=== PATIENT | male | born 1965 | race Caucasian/White ===

== ENCOUNTER 2016-09-28 19:29 | Emergency (ER) | END 2016-09-29 00:21 | disposition home or self-care (01) | DX: S62.661A Nondisplaced fracture of distal phalanx of left index finger, initial encounter for closed fracture (principal); S60.122A Contusion of left index finger with damage to nail, initial encounter; J20.9 Acute bronchitis, unspecified; R42 Dizziness and giddiness; R05 Cough; W27.0XXA Contact with workbench tool, initial encounter; Y92.9 Unspecified place or not applicable | CPT/HCPCS: 71010; 73140; 93005; 94644; 94664; Z7502; Z7610 ==

== ENCOUNTER 2017-01-02 20:14 | Emergency (ER) | payer MEDICAID ==
[~2017-01-02] VITALS: Ht 167.6 cm; Wt 84.0 kg
[~2017-01-02 20:14] MED LIST: ALBU8.5H3 INH; CEPH-443 PO; CETI10CA PO; GUAI120S26 PO; HYDR-906 PO; IBUP400T22 PO
[2017-01-02 20:21] VITALS: Ht 167.6 cm; Wt 84.0 kg
[2017-01-02] MEDS ORDERED: FLUORESCEIN STRIP RIGHT EYE ONE (21:00)
[2017-01-02] MEDS ORDERED: TETRACAINE 0.5% 4 ML OPH RIGHT EYE ONE (21:00)
--- NOTE | 2017-01-02 21:40 | ERD ---
ER Documentation Chief Complaint Date/Time DATE: 01/02/17 TIME: 21:32 Chief Complaint right eye redness/poss fb since last night, also c/o rashes both arms HPI 50-year-old male presents with chief complaint of right eye redness and discomfort since yesterday. Patient states that symptoms began after he believes a lawnmower blew fragments of leaves into his eye, he then began to itch his eye and noticed bright redness in the left corner of his eye afterwards. He denies changes in vision, discharge, periorbital swelling, pain with moving eyes from side to side, and photophobia. He denies use of contact lenses and glasses. He denies any direct blunt trauma. In addition patient complains of bilateral arm rash 2 weeks, he is applied hydrocortisone and Benadryl without relief. 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 However does not wear gloves. He denies other close contacts having similar rash, denies use of any medications or topical agents. Denies shortness of breath, fever or wheezing. ROS All systems reviewed and are negative except as per history of present illness. Medications Home Meds Active Scripts Triamcinolone Acetonide (Triamcinolone Acetonide) 0.1% - 15 Gm Cream.gm., 1 APPLIC TOP BID, #1 TUB Prov:Paula Simmons PA-C 01/02/17 Polymyxin B Sulfate-TMP* (Polymyxin B-TMP Eye Drops*) 10 Ml Drops, 1 DROP RIGHT EYE QID for 5 Days, #1 BOTTLE Prov:Paula Simmons PA-C 01/02/17 Cetirizine Hcl* (Zyrtec*) 10 Mg Capsule, 10 MG PO DAILY, #30 TAB.CHEW Prov:CIARAN YANES NP 09/28/16 Albuterol Sulfate* (Proair HFA*) 8.5 Gm Hfa.aer.ad, 2 PUFF INH Q4H Y for WHEEZING AND SOB, #1 INHALER Prov:CIARAN YANES NP 09/28/16 Hydrocodone/Acetaminophen ([place] 5-325 Tablet) 1 Each Tablet, 1 TAB PO Q6H Y for SEVERE PAIN LEVEL 7-10, #20 TAB Prov:CIARAN YANES NP 09/28/16 Qzzygbeiffc-X-Bivxheguwc Hb* (Guaifenesin* DM Syrup) 120 Ml Syrup, 10 ML PO Q4H Y for COUGH, #120 ML Prov:CIARAN YANES NP 09/28/16 Ibuprofen* (Motrin*) 400 Mg Tab, 400 MG PO Q6H Y for PAIN AND OR ELEVATED TEMP, #30 TAB Prov:CIARAN YANES SHANK THREADER 09/28/16 Cephalexin* (Keflex*) 500 Mg Capsule, 500 MG PO QID for 5 Days, CAP Prov:JOAQUÍNCIARAN SHANK THREADER 09/28/16 Reported Medications [none] Unknown Strength No Conflict Check 09/28/16 Allergies Allergies: Coded Allergies: No Known Drug Allergies (Verified Allergy, Mild, 01/02/17) PMhx/Soc History of Surgery: Yes (RIGHT HAND SURGERY) Anesthesia Reaction: No Hx Neurological Disorder: No Hx Respiratory Disorders: No Hx Cardiac Disorders: No Hx Psychiatric Problems: No Hx Miscellaneous Medical Probl: No Hx Alcohol Use: No Hx Substance Use: No Hx Tobacco Use: No Physical Exam Vitals Vital Signs Date Time Temp Pulse Resp B/P Pulse Ox O2 Delivery O2 Flow Rate FiO2 01/02/17 20:21 97.3 91 20 165/97 98 Physical Exam GENERAL: Non-toxic. No apparent signs of distress. HEENT: Atraumatic. Bilateral eyes are PERRL EOM intact. Normal conjunctiva, no injection. No eyelid or lower eyelid swelling noted. subconjunctival hemorrhage over medial sclera of the right eye. No hyphema, no periorbital swelling, no pain with extraocular muscle movement. Normal shaped pupils bilaterally. Ears: Normal tympanic membrane, no erythema or bulging. No ear canal swelling. No ear discharge. Nose: no nasal discharge. Throat: Oropharynx normal. Tongue pink and moist. No tonsillar swelling or tonsillar exudates. No lymphadenopathy. LUNGS: Clear to auscultation. No accessory muscle use. No wheezing, no crackles. No signs or symptoms of respiratory distress. HEART: Regular rate and rhythm. No murmurs, clicks, rubs or gallops. NEURO: The patient moves all 4 extremities with 5/5 strength. Cranial nerves are grossly intact. Normal mental status for age. Good muscle tone. SKIN: Raised erythematous lesions over bilateral forearms and dorsal hands, blanchable, with excoriations. No burrows or rash in inter webs of fingers. Petechiae, erythema or swelling. Good skin turgor. Results 24 hrs Current Medications Medications (Trade) Dose Ordered Sig/Benjamin Route PRN Reason Start Time Stop Time Status Last Admin Dose Admin Tetracaine HCl (Tetracaine 0.5% Steri-Unit Fe) 1 drop ONCE ONCE RIGHT EYE 01/02/17 21:00 01/02/17 21:01 DC Fluorescein Sodium (Sxfjl-E-Ghoaq) 1 strip ONCE ONCE RIGHT EYE 01/02/17 21:00 01/02/17 21:01 DC Procedures/MDM Patient presented with complaint of eye discomfort and redness after having fragments of Elías splint in his eye yesterday, describes foreign body sensation in his right eye. On examination he is a sub-conjunctival hemorrhage over the medial sclera, there is no periorbital swelling, patient has no pain with extraocular muscle movement, no hyphema, normal shaped pupil. Visual acuity revealed equal vision in bilateral eyes. I explained to the patient that I would be doing a fluorescein stain exam to rule out corneal abrasion or ulcer that could be attributing to foreign body sensation, on was lamp exam there is no fluorescein uptake however there was small fragments of foreign body. I expect the patient that we would be applying a Magno lens and irrigating the eye as well as prescribing antibiotic eyedrops prophylactically to prevent infection. On reexamination of the eye after the Magno lens irrigation, there appeared to be no fragments of foreign body. Patient reported mild relief afterwards. At this time low suspicion for corneal ulcer, acute angle-closure glaucoma, globe injury or entrapment, hyphema , and post or preseptal cellulitis. Patient also complained a rash of bilateral arms 2 weeks, on examination there was excoriations and raised erythematous patches over bilateral forearms and dorsal surfaces of hands. Expect the patient that this is likely atopic dermatitis due to exposure to occupational chemicals. Suggested use of gloves at work and use of triamcinolone relief of pruritus patient advised to follow- up with vulcanizer for allergy testing or biopsy for definitive diagnosis. At this time low suspicion for SJS, cellulitis, scabies, and bedbugs. Patient is stable for discharge and outpatient management. Advised to follow-up with PCP or outpatient clinic in 1-2 days. Strict return precautions discussed. Departure Diagnosis: Primary Impression: Foreign body in eyeball, right Encounter type: initial encounter Qualified Code: S05.51XA - Foreign body in eyeball, right, initial encounter Additional Impression: Atopic dermatitis Atopic dermatitis type: unspecified Qualified Code: L20.9 - Atopic dermatitis, unspecified type Condition: Paula Epps PA-C January 02, 2017 21:40
[2017-01-02] MEDS ORDERED: POLY10DR19 RIGHT EYE (21:44)
[2017-01-02] MEDS ORDERED: KENC1 TOP (21:44)
[2017-01-02 22:21] VITALS: BP 159/99; PULSE 67; RESP 16; TEMP 97.9
== END 2017-01-02 22:22 | disposition home or self-care (01) ==
LOC: FTE 20:14
DX: S05.51XA Penetrating wound with foreign body of right eyeball, initial encounter (principal); L20.9 Atopic dermatitis, unspecified; X58.XXXA Exposure to other specified factors, initial encounter; Y92.89 Other specified places as the place of occurrence of the external cause
CPT/HCPCS: Z7502; Z7610; 99284

== ENCOUNTER 2018-08-31 01:03 | Emergency (ER) | payer MEDICAID ==
[~2018-08-31] VITALS: Ht 167.6 cm; Wt 86.0 kg
[~2018-08-31 01:03] MED LIST changes: -ALBU8.5H3 INH; +ALBU8.5H8 INH; +HYDR-4011 PO; -HYDR-906 PO; +IBUP-1561 PO; -IBUP400T22 PO; +POLY10DR19 RIGHT EYE; +TRIA15CR55 TOP
[2018-08-31 01:08] VITALS: Ht 167.6 cm; Wt 86.0 kg
[2018-08-31] MEDS ORDERED: ALBUTEROL 0.5% (NEB) 2.5 MG/0.5 ML AMP INH STA (01:14)
[2018-08-31] MEDS ORDERED: IPRATROPIUM (NEB) 0.5 MG/2.5 ML AMP INH STA (01:14)
[2018-08-31] MEDS ORDERED: DEXAMETHASONE 10 MG/ML 1 ML INJ IM STA (01:14)
--- NOTE | 2018-08-31 02:13 | ERD ---
ER Documentation Chief Complaint Chief Complaint sob x1 hrx asthma HPI This is a very pleasant 54 mL because of shortness of breath for the past 2 hours. Patient has history of asthma but has not been inhaler. Denies any fevers chills nausea vomiting. Denies any other current complaints. ROS All systems reviewed and are negative except as per history of present illness. Medications Home Meds Active Scripts Triamcinolone Acetonide (Triamcinolone Acetonide) 0.1% - 15 Gm Cream.gm., 1 APPLIC TOP BID, #1 TUB Prov:Paula Simmons PA-C 01/02/17 Polymyxin B Sulfate-TMP* (Polymyxin B-TMP Eye Drops*) 10 Ml Drops, 1 DROP RIGHT EYE QID for 5 Days, #1 BOTTLE Prov:Paula Simmons PA-C 01/02/17 Cetirizine Hcl* (Zyrtec*) 10 Mg Capsule, 10 MG PO DAILY, #30 TAB.CHEW Prov:CIARAN YANES NP 09/28/16 Albuterol Sulfate* (Proair HFA*) 8.5 Gm Hfa.aer.ad, 2 PUFF INH Q4H PRN for WHEEZING AND SOB, #1 INHALER Prov:CIARAN YANES NP 09/28/16 Hydrocodone/Acetaminophen ([place] 5-325 Tablet) 1 Each Tablet, 1 TAB PO Q6H PRN for SEVERE PAIN LEVEL 7-10, #20 TAB Prov:CIARAN YANES NP 09/28/16 Qtnkiaaybci-H-Eljoodtpdk Hb* (Guaifenesin* DM Syrup) 120 Ml Syrup, 10 ML PO Q4H PRN for COUGH, #120 ML Prov:CIARAN YANES NP 09/28/16 Ibuprofen* (Motrin*) 400 Mg Tab, 400 MG PO Q6H PRN for PAIN AND OR ELEVATED TEMP, #30 TAB Prov:CIARAN YANES NP 09/28/16 Cephalexin* (Keflex*) 500 Mg Capsule, 500 MG PO QID for 5 Days, CAP Prov:CIARAN YANES NP 09/28/16 Reported Medications [none] Unknown Strength No Conflict Check 1/31/17 Allergies Allergies: Coded Allergies: No Known Drug Allergies (Verified Allergy, Mild, 01/02/17) PMhx/Soc History of Surgery: Yes (RIGHT HAND SURGERY) Anesthesia Reaction: No Hx Neurological Disorder: No Hx Respiratory Disorders: Yes (ASTHMA) Hx Cardiac Disorders: Yes (HTN) Hx Psychiatric Problems: No Hx Miscellaneous Medical Probl: No Hx Alcohol Use: No Hx Substance Use: No Hx Tobacco Use: No Smoking Status: Never smoker Physical Exam Vitals Vital Signs Date Temp Pulse Resp B/P (MAP) Pulse Ox O2 O2 Flow FiO2 Time Delivery Rate 08/31/18 105 20 96 21 01:30 08/31/18 98.0 107 18 159/85 94 Room Air 01:20 (109) 08/31/18 97.0 121 20 170/100 96 01:08 (123) Physical Exam Const: No acute distress Head: Atraumatic Eyes: Normal Conjunctiva ENT: Normal External Ears, Nose and Mouth. Neck: Full range of motion. No meningismus. Resp: Clear to auscultation bilaterally Cardio: Regular rate and rhythm, no murmurs Abd: Soft, non tender, non distended. Normal bowel sounds Skin: No petechiae or rashes Back: No midline or flank tenderness Ext: No cyanosis, or edema Neur: Awake and alert Psych: Normal Mood and Affect Results 24 hrs Current Medications Medications Dose Sig/Benjamin Start Time Status Last (Trade) Ordered Route PRN Stop Time Admin Dose Reason Admin Albuterol 10 mg ONCE STAT 08/31/18 DC 08/31/18 (Proventil INH 01:14 08/31/18 01:30 0.5% (Neb)) 01:15 Ipratropium 1 mg ONCE STAT 08/31/18 DC 08/31/18 [place] INH 01:14 08/31/18 01:30 (Atrovent 01:15 0.02% (Neb)) 10 mg ONCE STAT 08/31/18 DC 08/31/18 Dexamethasone IM 01:14 08/31/18 01:28 (Decadron) 01:15 Procedures/MDM Patient's respiratory status has stabilized while in the department and is appropriate for outpatient work up. Exam and work up not consistent w/ impending respiratory failure or cardiovascular collapse. Chest X-ray 1V Interpreted by me: Soft Tissue: No acute abnormalities Bones: No acute abnormalities Mediastinum/Cardiac Silhouette/Lungs: No acute abnormalities Discharge prescriptions: Z-Landry, prednisone, albuterol Departure Diagnosis: Primary Impression: Bronchitis Condition: Stable LUIS ENRIQUE COON Aug 31, 2018 02:13
[2018-08-31] MEDS ORDERED: PRED20TA PO (02:14)
[2018-08-31] MEDS ORDERED: AZIT250T PO (02:14)
[2018-08-31] MEDS ORDERED: ALBU18HF INHALATION (02:14)
[2018-08-31 02:57] VITALS: BP 129/84; PULSE 112; RESP 20
== END 2018-08-31 02:59 | disposition home or self-care (01) ==
LOC: E/R 01:03
DX: J40 Bronchitis, not specified as acute or chronic (principal)
CPT/HCPCS: 71045; 94644; 96372; J1100; Z7502; Z7610

== ENCOUNTER 2019-03-25 13:44 | Emergency (ER) | payer MEDICAID ==
[~2019-03-25] VITALS: Ht 167.6 cm; Wt 84.0 kg
[~2019-03-25 13:44] MED LIST changes: +ALBU18HF INHALATION; -ALBU8.5H8 INH; +AZIT250T PO; -CEPH-443 PO; -CETI10CA PO; -GUAI120S26 PO; +IBUP-1542 PO; -IBUP-1561 PO; +MELO7.5T38 PO; -POLY10DR19 RIGHT EYE; +PRED20TA PO; -TRIA15CR55 TOP
[2019-03-25 13:47] VITALS: BP 166/92; PULSE 82; RESP 18; Ht 167.6 cm; Wt 84.0 kg
[2019-03-25] MEDS ORDERED: KETOROLAC 30 MG INJ IM STA (14:24)
[2019-03-25] MEDS ORDERED: HYDROCODONE/APAP (5/325) TAB PO ONE (14:30)
--- NOTE | 2019-03-25 15:56 | ERD ---
ER Documentation Chief Complaint Chief Complaint twisted rt ankle yesterday on stairs , swollen HPI Patient is a 53-year-old male, past medical history of pre-DM type II, presents the ER for concerns of right ankle pain x1 day. Patient states he was going on the stairs when he twisted his ankle when he fell. Patient states he has been unable to bear weight to the affected extremity since his injury. Patient states his pain is a 10 out of 10. Patient reports taking Tylenol with no alleviation of symptoms earlier this morning. Patient denies any previous fractures or dislocations. Patient denies head injury, nausea, vomiting or LOC. ROS All systems reviewed and are negative except as per history of present illness. Medications Home Meds Active Scripts Hydrocodone/Acetaminophen ([place] 5-325 Tablet) 1 Each Tablet, 1 TAB PO Q6H PRN for PAIN, #7 TAB Prov:MAIRA SMITH PA-C 03/25/19 Ibuprofen* (Motrin*) 600 Mg Tab, 600 MG PO Q6, #30 TAB Prov:MAIRA SMITH PA-C 03/25/19 Azithromycin* (Zithromax*) 250 Mg Tablet, 250 MG PO .ZPACK DIRECTED, #6 TAB TAKE 500 MG (2 TABS) THE FIRST DAY THEN 250 MG (1 TAB) DAYS 2-5 Prov:LUIS ENRIQUE COON 08/31/18 Albuterol Sulfate* (Ventolin HFA*) 18 Gm Hfa.aer.ad, 2 PUFF INHALATION Q4H, #1 INHALER Prov:LUIS ENRIQUE COON 08/31/18 Prednisone* (Prednisone*) 20 Mg Tab, 40 MG PO DAILY for 4 Days, TAB Prov:LUIS ENRIQUE COON 08/31/18 Allergies Allergies: Coded Allergies: No Known Drug Allergies (Unverified Allergy, Mild, 08/31/18) PMhx/Soc History of Surgery: Yes (RIGHT HAND SURGERY) Anesthesia Reaction: No Hx Neurological Disorder: No Hx Respiratory Disorders: Yes (ASTHMA) Hx Cardiac Disorders: Yes (HTN) Hx Psychiatric Problems: No Hx Miscellaneous Medical Probl: No Hx Alcohol Use: No Hx Substance Use: No Hx Tobacco Use: No FmHx Family History: No diabetes Physical Exam Vitals Vital Signs Date Temp Pulse Resp B/P (MAP) Pulse Ox O2 O2 Flow FiO2 Time Delivery Rate 03/25/19 98.3 82 18 166/92 98 13:47 (116) Physical Exam GENERAL: Well-developed, well-nourished male. Appears in no acute distress. HEAD: Normocephalic, atraumatic. EYES: Pupils are equally reactive bilaterally. EOMs grossly intact. No conjunctival erythema. ENT: Moist mucous membranes. No uvula deviation. No kissing tonsils. NECK: Supple. No meningismus. Normal range of motion of the neck. No cervical midline tenderness. EXTREMITIES: Equal pulses bilaterally. No peripheral clubbing, cyanosis or edema. No unilateral leg swelling. NEUROLOGIC: Alert and oriented. Moving all four extremities without any difficulty. Normal speech. Steady gait. SKIN: Normal color. Warm and dry. No rashes or lesions. RLE: Moderate amount of swelling noted at the ankle joint. Tender to palpation of medial lateral ankles. Decreased range of motion secondary to pain and swelling. Tender palpation of the proximal tib-fib. Nontender to palpation of the midfoot, fifth metatarsal.. Sensation intact to light touch. Neurovascularly intact. (Able to plantarflex, dorsiflex, tereso foot, invert foot, raise big toe.) 2+ DP pulses. Results 24 hrs Current Medications Medications Dose Sig/Benjamin Start Time Status Last (Trade) Ordered Route PRN Stop Time Admin Dose Reason Admin Ketorolac 30 mg ONCE STAT 03/25/19 DC 03/25/19 Tromethamine IM 14:24 14:33 (Toradol) 03/25/19 14:26 1 tab ONCE ONCE 03/25/19 DC 03/25/19 Acetaminophen PO 14:30 14:33 / 03/25/19 14:31 Hydrocodone Bitart ([place] (5/325)) Procedures/MDM ED COURSE: The patient was stable throughout ED course. I kept the patient and/or family informed of laboratory and diagnostic imaging results throughout the ED course. DIAGNOSTIC IMAGING: Read by radiologist. DIAGNOSTIC IMAGING REPORT Patient: WENCESLAO LOPEZ : 1965 Age: 53 Sex: M MR #: [id number] DOS: 03/25/19 1424 Ordering MD: MAIRA SMITH PA-C Location: [facility] Room/Bed: PROCEDURE: XR Right Ankle and XR Right Foot. CLINICAL INDICATION: Pain TECHNIQUE: 3 views of the right ankle and 3 views of the right foot COMPARISON: None. FINDINGS: Ankle: There is a mildly displaced oblique fracture of the distal fibula at and extending above the level of the ankle mortise. There is about 4 mm posterior displacement of the distal fracture fragment. A small mildly displaced anterior fracture fragment is also present. Ankle mortise is intact. Joint spaces are maintained. There is soft tissue swelling within the lateral ankle. Foot: There is no acute fracture or dislocation. The joint spaces are maintained. The tarsometatarsal joints are intact. The soft tissues are unremarkable. RPTAT: ZZ IMPRESSION: 1. Mildly displaced oblique fracture of the distal fibula at and extending above the level of the ankle mortise with adjacent soft tissue swelling. 2. No acute fracture within the foot. .Pooja Jacobo MD, MD Date Time Electronically viewed and signed by .Pooja Jacobo MD, on 03/25/2019 16:02 .T/ DIAGNOSTIC IMAGING REPORT Patient: WENCESLAO LOPEZ : 1965 Age: 53 Sex: M MR #: [id number] DOS: 03/25/19 1424 Ordering MD: MAIRA SMITH PA-C Location: [facility] Room/Bed: PROCEDURE: XR Tibia and Fibula. CLINICAL INDICATION: Ankle pain TECHNIQUE: Two views of the right tibia and fibula are available for review. COMPARISON: None available FINDINGS: There is a mildly displaced oblique fracture of the distal fibula at and extending above the level of the ankle mortise. There is about 4 mm posterior displacement of the distal fracture fragment. A small mildly displaced anterior fracture fragment is also present. The tibia is intact. The soft tissues around the leg are unremarkable. RPTAT: AA IMPRESSION: 1. Mildly displaced oblique fracture of the distal fibula at and extending above the level of the ankle mortise. 2. No acute fracture of the tibia. .Pooja Jacobo MD, MD Date Time Electronically viewed and signed by .Pooja Jacobo MD, MD on 03/25/2019 15:59 .T/ CC: MAIRA SMITH PA-C [phone] SPLINT APPLICATION: The patient was verbally consented at bedside prior to splint application. P atient was explained the risks, benefits and alternatives to this procedure. The patient was neurovascularly intact prior to and status post application of the splint. The patient tolerated the procedure well with no complications. Splint type: posterior ankle splint Extremity: right Indication: fibula fracture MEDICATIONS GIVEN: Toradol, [place] Patient tolerated medication well with no adverse reactions. Patient reported improvement in pain. MEDICAL DECISION MAKING: This is a 53-year-old male who presents the ER for concerns of right ankle pain after twisting it while going downstairs yesterday. Vital signs were reviewed. Patient was afebrile. Xrays showed concerns of a distal fibula fracture. See formal report above. Patient was placed in a short leg splint and given crutches to assist with ambulation. Patient was advised to be nonweightbearing to the affected extre mity until seen and cleared by credit operations specialist. Low suspicion for dislocation, tibia fracture, tibial plateau fracture, foot fracture, septic joint, DVT, Major no fracture or compartment syndrome. Unable to rule any ligament or tendon injuries at this time. Patient was nontoxic, [id number] prior to discharge. PRESCRIPTIONS: Ibuprofen, [place] The patient has been prescribed [place] during this encounter. The patient has been warned about the use of narcotics. The patient should not drive or operate heavy machinery while taking this medication. The patient was also warned about the addictive properties of narcotic medications. Narcan prescription was NOT provided given the following criteria: 1. Less than 5 tablets of [place] 10 mg or 10 tablets of [place] 5 mg were prescribed. 2. concomitant opiate and benzodiazepine prescriptions were not provided. 3. There was no obvious evidence of prior history of opiate abuse or abuse. DISCHARGE: At this time, patient is stable for discharge and outpatient management. I have instructed the patient to follow-up with his/her primary care physician in 1-2 days. I have discussed with the patient the possibility of needing to see an credit operations specialist for further workup and imaging if the pain persists. I have instructed the patient to promptly return to the ER for any new or worsening symptoms including increased pain, swelling, redness, warmth or fever. The patient and/or family expressed understanding of and agreement with this plan. All questions were answered. Home care instructions were provided. Disclaimer: Inadvertent spelling and grammatical errors are likely due to E HR/dictation software use and do not reflect on the overall quality of patient care. Also, please note that the electronic time recorded on this note does not necessarily reflect the actual time of the patient encounter. Departure Diagnosis: Primary Impression: Fibula fracture Encounter type: initial encounter Fibula location: lateral malleolus Fracture type: closed Fracture alignment: displaced Laterality: unspecified laterality Qualified Codes: S82.63XA - Displaced fracture of lateral malleolus of unspecified fibula, initial encounter for closed fracture Condition: Fair Referrals: [facility] YOU HAVE RECEIVED A MEDICAL SCREENING EXAM AND THE RESULTS INDICATE THAT YOU DO NOT HAVE A CONDITION THAT REQUIRES URGENT TREATMENT IN THE EMERGENCY DEPARTMENT. FURTHER EVALUATION AND TREATMENT OF YOUR CONDITION CAN WAIT UNTIL YOU ARE SEEN IN YOUR DOCTORS OFFICE WITHIN THE NEXT 1-2 DAYS. IT IS YOUR RESPONSIBILITY TO MAKE AN APPOINTMENT FOR FOLOW-UP CARE. IF YOU HAVE A PRIMARY DOCTOR --you should call your primary doctor and schedule an appointment IF YOU DO NOT HAVE A PRIMARY DOCTOR YOU CAN CALL OUR PHYSICIAN REFERRAL HOTLINE AT IF YOU CAN NOT AFFORD TO SEE A PHYSICIAN YOU CAN CHOSE FROM THE FOLLOWING [facility] [address] [facility]. [facility] [address] [facility] [address] [facility]. [facility] [address] [facility] [address] [facility]. [facility]. [address] [facility]. [facility] YOU HAVE RECEIVED A MEDICAL SCREENING EXAM AND THE RESULTS INDICATE THAT YOU DO NOT HAVE A CONDITION THAT REQUIRES URGENT TREATMENT IN THE EMERGENCY DEPARTMENT. FURTHER EVALUATION AND TREATMENT OF YOUR CONDITION CAN WAIT UNTIL YOU ARE SEEN IN YOUR DOCTORS OFFICE WITHIN THE NEXT 1-2 DAYS. IT IS YOUR RESPONSIBILITY TO MAKE AN APPOINTMENT FOR FOLOW-UP CARE. IF YOU HAVE A PRIMARY DOCTOR --you should call your primary doctor and schedule and appointment IF YOU DO NOT HAVE A PRIMARY DOCTOR YOU CAN CALL OUR PHYSICIAN REFERRAL HOTLINE AT . IF YOU CAN NOT AFFORD TO SEE A PHYSICIAN YOU CAN CHOSE FROM THE FOLLOWING [facility]: [facility] [address] [place] [address] [facility] [address] [place] [address] [facility] [address] [place] [address] [facility] Urgent Care 7 a.m.- 11 p.m. Every Day of the Week NO APPOINTMENT OR AUTHORIZATION NEEDED Additional Instructions: Call your primary care doctor TOMORROW for an appointment during the next 1-2 days.See the doctor sooner or return here if your condition worsens before your appointment time. MAIRA SMITH PA-C Mar 25, 2019 15:56
== END 2019-03-25 16:34 | disposition home or self-care (01) ==
LOC: FTE 13:44
DX: S82.431A Displaced oblique fracture of shaft of right fibula, initial encounter for closed fracture (principal); J45.909 Unspecified asthma, uncomplicated; I10 Essential (primary) hypertension; X50.1XXA Overexertion from prolonged static or awkward postures, initial encounter; Y92.9 Unspecified place or not applicable
CPT/HCPCS: 29515; 73590; 73610; 73630; 96372; J1885; Z7502; Z7610

== ENCOUNTER 2019-03-31 21:50 | Emergency (ER) | payer MEDICAID ==
[~2019-03-31] VITALS: Ht 165.1 cm; Wt 82.3 kg
[2019-03-31 21:52] VITALS: Ht 165.1 cm; Wt 82.3 kg
[2019-03-31] MEDS ORDERED: KETOROLAC 60 MG INJ IM STA (23:42)
--- NOTE | 2019-03-31 23:44 | ERD ---
ER Documentation Chief Complaint Chief Complaint RIGHT FOOT PAIN X 3 DAYS. HPI Patient is a 53 years old male presenting to the clinic for unimproved right ankle pain. Patient was seen on 03/25/2019 and was diagnosed with mildly displaced oblique fracture of the distal fibula at and extending above the level of the ankle mortise. He received a right ankle splint, however, he did not follow-up with orthopedics. He reports that the ankle splint was done to tightly and is requesting an ankle boot. ROS All systems reviewed and are negative except as per history of present illness. Medications Home Meds Active Scripts Meloxicam* (Meloxicam*) 7.5 Mg Tablet, 7.5 MG PO DAILY, #30 TAB Prov:APRIL LI PA-C 03/31/19 Hydrocodone/Acetaminophen ([place] 5-325 Tablet) 1 Each Tablet, 1 TAB PO Q6H PRN for PAIN, #7 TAB Prov:MAIRA SMITH PA-C 03/25/19 Ibuprofen* (Motrin*) 600 Mg Tab, 600 MG PO Q6, #30 TAB Prov:MAIRA SMITH PA-C 03/25/19 Azithromycin* (Zithromax*) 250 Mg Tablet, 250 MG PO .ZPACK DIRECTED, #6 TAB TAKE 500 MG (2 TABS) THE FIRST DAY THEN 250 MG (1 TAB) DAYS 2-5 Prov:LUIS ENRIQUE COON 08/31/18 Albuterol Sulfate* (Ventolin HFA*) 18 Gm Hfa.aer.ad, 2 PUFF INHALATION Q4H, #1 INHALER Prov:LUIS ENRIQUE COON 08/31/18 Prednisone* (Prednisone*) 20 Mg Tab, 40 MG PO DAILY for 4 Days, TAB Prov:LUIS ENRIQUE COON 08/31/18 Allergies Allergies: Coded Allergies: No Known Drug Allergies (Unverified Allergy, Mild, 08/31/18) PMhx/Soc History of Surgery: Yes (RIGHT HAND SURGERY) Anesthesia Reaction: No Hx Neurological Disorder: No Hx Respiratory Disorders: Yes (ASTHMA) Hx Cardiac Disorders: Yes (HTN) Hx Psychiatric Problems: No Hx Miscellaneous Medical Probl: No Hx Alcohol Use: No Hx Substance Use: No Hx Tobacco Use: No Smoking Status: Never smoker Physical Exam Vitals Vital Signs Date Temp Pulse Resp B/P (MAP) Pulse Ox O2 O2 Flow FiO2 Time Delivery Rate 04/01/19 98.3 73 18 143/81 97 Room Air 00:15 (101) 03/31/19 99.2 83 20 181/86 95 21:52 (117) Physical Exam Const: No acute distress Head: Atraumatic Resp: Clear to auscultation bilaterally Cardio: Regular rate and rhythm, no murmurs Psych: Normal Mood and Affect Right Ankle Exam: Mild swelling tenderness on entire ankle. Mild ecchymoses not ed around ankle. Neurovascular exam intact, skin intact. Results 24 hrs Current Medications Medications Dose Sig/Benjamin Start Time Status Last (Trade) Ordered Route PRN Stop Time Admin Dose Reason Admin Ketorolac 60 mg ONCE STAT 03/31/19 DC 04/01/19 Tromethamine IM 23:42 03/31/19 00:11 (Toradol) 23:43 Procedures/MDM Patient was seen and evaluated for right ankle pain post distal fibula fracture without complications. Toradol 60 mg administered in ED. Ankle boot administered as per patient request. No repeat images required at today's visit. Patient stable ready for discharge. Follow up with PCP. Patient was advised to follow-up with orthopedic. Departure Diagnosis: Primary Impression: Fibula fracture Encounter type: subsequent encounter Fibula location: distal Fracture type: closed Fracture morphology: unspecified fracture morphology Laterality: right Fracture healing: with routine healing Qualified Codes: S82.831D - Other fracture of upper and lower end of right fibula, subsequent encounter for closed fracture with routine healing Condition: Stable Patient Instructions: Ankle Fracture (Distal Fibula), Closed Referrals: [facility] Additional Instructions: Paciente aconseja volver a Departamento de urgencias inmediatamente para sntomas nuevos o que empeoran . Paciente aconseja posteriores con el PCP en 2-3 rees . Paciente verbaliza la comprehensin y est de acuerdo con el tratamiento y el curso de accin. Si el paciente no tiene ninguna de atencin primaria pueden seguir con [facility] [address] [place] [address] o [facility] + [address] [address] APRIL LI PA-C Mar 31, 2019 23:44
[2019-04-01 00:15] VITALS: BP 143/81; PULSE 73; RESP 18
== END 2019-04-01 00:20 | disposition home or self-care (01) ==
LOC: FTE 21:50
DX: S82.831D Other fracture of upper and lower end of right fibula, subsequent encounter for closed fracture with routine healing (principal); J45.909 Unspecified asthma, uncomplicated; I10 Essential (primary) hypertension; X58.XXXD Exposure to other specified factors, subsequent encounter
CPT/HCPCS: 96372; J1885; L4386; Z7502